=== PATIENT | male | born 1995 | race Hispanic/Latino ===

== ENCOUNTER 2018-06-17 22:08 | Emergency (ER) | payer BC ==
[2018-06-17] MEDS ORDERED: Midazolam 2 MG/2 ML VIAL IV ONE (22:35)
[2018-06-17] MEDS ORDERED: Glucagon Recombinant 1 mg Inj IV ONE (22:35)
[2018-06-17] MEDS ORDERED: Sodium Chloride 0.9% 1,000 ML IV STA (22:36)
[2018-06-17] MEDS ORDERED: Midazolam 2 MG/2 ML VIAL ONE (22:38)
[2018-06-17] MEDS ORDERED: Glucagon Recombinant 1 mg Inj ONE (22:38)
--- NOTE | 2018-06-17 22:47 | ED PDOC ---
HPI: General Adult Time Seen by Provider: 06/17/18 22:16 Chief Complaint (Nursing): Foreign Body History Per: Patient History/Exam Limitations: no limitations Onset/Duration Of Symptoms: Hrs Have you had recent travel within the past 21 days to any of the following countries: [place], [place], [place] or [place]?: No Additional Complaint(s): Hx of eosinophilic esophagitis presenting with food impaction, states he was eating a chicken sandwich around 4PM and did not chew properly, states he feels something stuck in his throat/chest and is unable to swallow liquids nor even saliva. No respiratory difficulty. States he's had endoscopies to push the food down in the past. No headache, fever, or any other symptoms. Past Medical History Reviewed: Historical Data, Nursing Documentation, Vital Signs Vital Signs: Last Vital Signs Temp 98.1 F 06/17/18 22:10 Pulse 51 L 06/18/18 02:20 Resp 18 06/18/18 02:20 BP 101/67 06/18/18 02:20 Pulse Ox 97 06/18/18 02:20 - Family History Family History: States: Unknown Family Hx - Allergies Allergies/Adverse Reactions: Allergies Allergy/AdvReac Type Severity Reaction Status Date / Time No Known Allergies Allergy Verified 06/17/18 22:13 Review of Systems ROS Statement: Except As Marked, All Systems Reviewed And Found Negative ENT: Positive for: Throat Pain Physical Exam - Reviewed Nursing Documentation Reviewed: Yes Vital Signs Reviewed: Yes - Physical Exam Appears: Positive for: Well, Non-toxic, No Acute Distress Head Exam: Positive for: ATRAUMATIC, NORMAL INSPECTION, NORMOCEPHALIC Skin: Positive for: Normal Color, Warm, DRY Eye Exam: Positive for: EOMI, Normal appearance, PERRL ENT: Positive for: Normal ENT Inspection Neck: Positive for: Normal, Painless ROM Cardiovascular/Chest: Positive for: Regular Rate, Rhythm Respiratory: Positive for: CNT, Normal Breath Sounds Gastrointestinal/Abdominal: Positive for: Normal Exam, Soft Back: Positive for: Normal Inspection Extremity: Positive for: Normal ROM Neurologic/Psych: Positive for: Alert, Oriented - Laboratory Results Result Diagrams: 06/18/18 02:21 06/18/18 02:21 - ECG O2 Sat by Pulse Oximetry: 96 Pulse Ox Interpretation: Normal Medical Decision Making Medical Decision MakinPM A/P: Hx of Eosinophilic Esophagitis presenting with food impaction -patient is very well appearing, ambulatory, speaking full sentences, normal vitals, no respiratory compromise -case discussed with Dr. Salmeron, GI fashion consultant, who states that patient can be added to list for AM endoscopy -will do trial of glucagon, versed wharike patient is on monitor, while drinking carbonated beverage 12AM -no changes, still feeling the same, no respiratory difficulty 2AM -no changes, resting comfortably 4AM -no changes 7AM -Dr. Gonzalez will take the patient to the OR at 830, will endorse case to Dr. Galicia Disposition - Clinical Impression Clinical Impression: Food impaction of esophagus - Patient ED Disposition Is Patient to be Admitted: Transfer of Care - Disposition Disposition: Transfer of Care Disposition Time: 07:00 Condition: STABLE Forms: [facility] (Mongolian) Patient Signed Over To: Elizabeth Galicia Handoff Comments: pending endoscopy
[2018-06-18] MEDS ORDERED: DiphenhydrAMINE 50 mg/ml Inj IVP STA (00:35)
[2018-06-18] MEDS ORDERED: DiphenhydrAMINE 50 mg/ml Inj ONE (00:41)
[2018-06-18 02:24] LABS: HEMOGLOBIN 13.9 g/dL (12.0-18.0); MEAN CORPUSCULAR HEMOGLOBIN 32.1 pg (27.0-31.0); MEAN CORPUSCULAR HGB CONC 34.5 g/dL (33.0-37.0); RBC 4.34 Mil/uL (4.40-5.90); RED CELL DISTRIBUTION WIDTH 12.4 % (11.5-14.5); WHITE BLOOD COUNT 7.7 K/uL (4.8-10.8)
[2018-06-18 02:32] LABS: BLOOD UREA NITROGEN 14 mg/dl (9-20); CALCIUM 9.2 mg/dL (8.4-10.2); GFR AFRICAN-AMERICAN > 60; GFR NON-AFRICAN AMERICAN > 60
--- NOTE | 2018-06-18 07:34 | ED PDOC ---
- Laboratory Results Result Diagrams: 06/18/18 02:21 06/18/18 02:21 - ECG O2 Sat by Pulse Oximetry: 99 Medical Decision Making Medical Decision Making: Patient endorsed by Dr. Camp. Patient is pending EGD for food bolus in esophagus 10.00a - patient s/p endoscopic treatment of stuck food bolus in esophagus. As per GI, patient may be discharged if he tolerates PO intake. patient feeling well. Tolerated liquids. Disposition Doctor Will See Patient In The: Office Counseled Patient/Family Regarding: Diagnosis, Need For Followup - Clinical Impression Clinical Impression: Food impaction of esophagus - POA Present On Arrival: None - Disposition Referrals: Martinez Gonzalez MD [Staff Provider] - Disposition: Routine/Home Disposition Time: 10:14 Condition: STABLE Instructions: Removal of Foreign Body, Swallowed, Adult, Foreign Body, Swallowed, Adult Forms: [facility] (Vietnamese), [facility] ED School/Work Excuse
[2018-06-18] MEDS ORDERED: Lactated Ringer's 500 ML IV ONE (08:23)
[2018-06-18] MEDS ORDERED: Midazolam 2 MG/2 ML VIAL ONE (08:34)
[2018-06-18] MEDS ORDERED: Succinylcholine 200 mg/10 ml Inj IV ONE (08:35)
[2018-06-18] MEDS ORDERED: Propofol 10 mg/ml Inj (20 ML) ONE (08:35)
--- NOTE | 2018-06-18 08:50 | CP.PCM.CON ---
<Timi Carnes - Last Filed: 06/18/18 09:13> History of Present Illness - History of Present Illness History of Present Illness: PGY5 Initial GI Consult Cedric Mathis is a 23M w/ hx of EE and prior food impactions who presents to the ER with complaints of food impaction. Pt states that he was eating chicken and felt that the chicken was stuck. He notes discomfort in the mid sterum. He assumed that he had a food impaction and arrived at the ER for further evaluation. Pt states that he is not able to maintain or swallow hi secretions. Denies any nausea or vomiting. Pt notes that he had a previous episodes of food impactions. His last episode was 2months, 2 years and 8 years ago. He has a primary GI in the [facility]. He has a follow-up next week. PMHx: EE, allergies PSHx: denies Social Hx: Denies smoking or illict drugs; + social ETOH Family Hx: Denies any GI malignancies ROS: 12 point ROS conducted, neg other than above Past Patient History - Past Medical History & Family History Past Medical History?: Yes - Past Social History Smoking Status: Never Smoked - GASTROINTESTINAL Other/Comment: Hx Eosinophilic esophagitis. Esophageal food bolus obstruction x 3 in the past - PSYCHIATRIC Hx Substance Use: No - SURGICAL HISTORY Other/Comment: Rt shoulder surgery - ANESTHESIA Hx Anesthesia: Yes Hx Anesthesia Reactions: No Meds Allergies/Adverse Reactions: Allergies Allergy/AdvReac Type Severity Reaction Status Date / Time carrot Allergy RASH Verified 06/18/18 07:53 nut - unspecified Allergy ANAPHYLAXIS Verified 06/18/18 07:53 onion Allergy RASH Verified 06/18/18 07:53 tomato Allergy RASH Verified 06/18/18 07:53 fruit Allergy ANAPHYLAXIS Uncoded 06/18/18 07:53 Physical Exam - Constitutional Appears: Well, No Acute Distress - Head Exam Head Exam: ATRAUMATIC, NORMOCEPHALIC - Eye Exam Eye Exam: Normal appearance - ENT Exam ENT Exam: Mucous Membranes Moist, Normal Exam - Respiratory Exam Respiratory Exam: Clear to Auscultation Bilateral, NORMAL BREATHING PATTERN. absent: Rales, Rhonchi, Wheezes, Respiratory Distress - Cardiovascular Exam Cardiovascular Exam: REGULAR RHYTHM, +S1, +S2 - GI/Abdominal Exam GI & Abdominal Exam: Normal Bowel Sounds, Soft. absent: Distended, Guarding, Organomegaly, Rebound, Rigid, Tenderness - Extremities Exam Extremities exam: Negative for: joint swelling, pedal edema - Neurological Exam Neurological exam: Alert, Oriented x3 - Psychiatric Exam Psychiatric exam: Normal Affect, Normal Mood - Skin Skin Exam: Dry, Intact, Normal Color, Warm Results - Vital Signs Recent Vital Signs: Last Vital Signs Temp 97.9 F 06/18/18 07:15 Pulse 90 06/18/18 07:43 Resp 16 06/18/18 07:15 BP 108/51 L 06/18/18 07:15 Pulse Ox 99 06/18/18 07:34 - Labs Result Diagrams: 06/18/18 02:21 06/18/18 02:21 Labs: Laboratory Results - last 24 hr 06/18/18 06/18/18 02:21 02:21 WBC 7.7 RBC 4.34 L Hgb 13.9 Hct 40.4 MCV 93.0 MCH 32.1 H MCHC 34.5 RDW 12.4 Plt Count 187 Sodium 143 Potassium 4.4 Chloride 109 H Carbon Dioxide 22 Anion Gap 16 BUN 14 Creatinine 1.0 Est GFR ( Amer) > 60 Est GFR (Non-Af Amer) > 60 Random Glucose 88 Calcium 9.2 Assessment & Plan - Assessment and Plan (Free Text) Assessment: Cedric Mathis is a 23M w/ hx of EE who presents with food impaction. S/P EGD POD#0; food bolus at the distl 1/2 esophagus, s/p disimpaction, gastritis Food impaction Esophageal stenosis, suspect EE vs stricture Plan: -continue PPI daily -start full liquid and advance as tolerated -okay to d/c from GI standpoint -needs to follow-up w/ primary GI in the [facility] -may need to restart PO steroids -will sign off D/W Dr. Gonzalez <Martinez Gonzalez - Last Filed: 06/18/18 09:26> Results - Vital Signs Recent Vital Signs: Last Vital Signs Temp 97.1 F L 06/18/18 08:10 Pulse 86 06/18/18 08:10 Resp 14 06/18/18 08:10 BP 115/66 06/18/18 08:10 Pulse Ox 99 06/18/18 08:10 - Labs Result Diagrams: 06/18/18 02:21 06/18/18 02:21 Labs: Laboratory Results - last 24 hr 06/18/18 06/18/18 02:21 02:21 WBC 7.7 RBC 4.34 L Hgb 13.9 Hct 40.4 MCV 93.0 MCH 32.1 H MCHC 34.5 RDW 12.4 Plt Count 187 Sodium 143 Potassium 4.4 Chloride 109 H Carbon Dioxide 22 Anion Gap 16 BUN 14 Creatinine 1.0 Est GFR ( Amer) > 60 Est GFR (Non-Af Amer) > 60 Random Glucose 88 Calcium 9.2 Assessment & Plan - Assessment and Plan (Free Text) Plan: Patient to follow with his canal tender. Esophagus is stiff and patient needs to chew well and eat slowly.
[2018-06-18 10:59] VITALS: BP 114/73; PULSE 56; RESP 18; TEMP 98; O2SAT 98
== END 2018-06-18 10:53 | disposition home or self-care (01) ==
LOC: H.ER 22:08
DX: T18.120A Food in esophagus causing compression of trachea, initial encounter (principal)
CPT/HCPCS: 80048; 85027; 88305; 96361; 96374; 96375; 99284; J0330; J1200; J1610; J2001; J2250; J2704; J2930; J3010; J7030; J7120